=== PATIENT | female | born 1960 | race Asian ===

== ENCOUNTER → 2021-12-29 09:34 | Outpatient (CLI) | payer BC, OTHER, SELFPAY ==
--- NOTE | 2021-12-29 | PATH_ITS ---
Note [facility] Accession Number: [id number] TESTS RESULT FLAG UNITS REF RANGE LAB Clinician Provided Cytology Information No. of containers..01 Other (Miscellaneous) No. of containers..02 Previously Prepared Cytology Slide Source: RIGHT SUPERIOR NODUL DIAGNOSIS: RIGHT SUPERIOR THYROID NODULE, FINE NEEDLE ASPIRATION (FNA). NEGATIVE FOR MALIGNANT CELLS. ADEQUATE FOR EVALUATION. FOLLICULAR GROUPS ARE PRESENT. BENIGN FOLLICULAR (GOITEROUS) NODULE ([place] CATEGORY II), SEE COMMENT. COMMENT: MICROSCOPIC EXAMINATION REVEALS A CELLULAR ASPIRATE, COMPOSED OF COLLOID, FOLLICULAR GROUPS WITHOUT SIGNIFICANT CYTOLOGIC OR ARCHITECTURAL ATYPIA, AND BACKGROUND MACROPHAGES. THESE FINDINGS SUPPORT A BENIGN FOLLICULAR (GOITEROUS) NODULE. CORRELATION WITH CLINICAL AND RADIOGRAPHIC FINDINGS IS RECOMMENDED. ACCORDING TO THE [place] REPORTING SYSTEM FOR THYROID CYTOPATHOLOGY, THE RISK OF MALIGNANCY IN THE CATEGORY BENIGN-CATEGORY II IS 0-3%; THEREFORE RECOMMEND CONTINUED ULTRASOUND SURVEILLANCE WITH REPEAT FNA IF THE NODULE SIGNIFICANTLY INCREASES IN SIZE. Pathologist ICD10: 01 E04.2 Signed out by: Belkys Taylor MD, Pathologist NPI- [id number] Performed by: Belkys Anderson, Developmental Specialist ([facility]) Gross description: 01 30 CC, RED, CLOUDY RECIEVED: IN CYTOLYT WITH 6 ALCOHOL FIXED AND 6 QUICK STAINED SLIDES ALSO 1 RNA VIAL WAS RECEIVED FOR FURTHER TESTING. /WHITLEYU 12/30/2021 0455 [facility] FLAG LEGEND: L-Low Normal,H-High Normal,LL-Alert Low,HH-Alert High <-Panic Low,>-Panic High,A-Abnormal,AA-Critical Abnormal Performed at: 01 [facility] [address], [place] [address] Ander Bartholomew MD, Performed at: 01 [facility] [address] [place] [address] [address], [place], [place] [id number] MD Ander Bartholomew MD Phone: [phone]
--- NOTE | 2021-12-29 | PATH_ITS ---
Note [facility] Accession Number: [id number] TESTS RESULT FLAG UNITS REF RANGE LAB Clinician Provided Cytology Information No. of containers..01 Other (Miscellaneous) No. of containers..02 Previously Prepared Cytology Slide Source: RIGHT INFERIOR THYRO DIAGNOSIS: 01 RIGHT INFERIOR THYROID NODULE, FINE NEEDLE ASPIRATION (FNA). NEGATIVE FOR MALIGNANT CELLS. ADEQUATE FOR EVALUATION. FOLLICULAR GROUPS ARE PRESENT. BENIGN FOLLICULAR (GOITEROUS) NODULE (BETHESDA CATEGORY II), SEE COMMENT. COMMENT: MICROSCOPIC EXAMINATION REVEALS A CELLULAR ASPIRATE, COMPOSED OF ABUNDANT COLLOID, FOLLICULAR GROUPS WITHOUT SIGNIFICANT CYTOLOGIC OR ARCHITECTURAL ATYPIA AND BACKGROUND MACROPHAGES. THESE FINDINGS SUPPORT A BENIGN FOLLICULAR (GOITEROUS) NODULE. CORRELATION WITH CLINICAL AND RADIOGRAPHIC FINDINGS IS RECOMMENDED. ACCORDING TO THE [place] REPORTING SYSTEM FOR THYROID CYTOPATHOLOGY, THE RISK OF MALIGNANCY IN THE CATEGORY BENIGN-CATEGORY II IS 0-3%; THEREFORE RECOMMEND CONTINUED ULTRASOUND SURVEILLANCE WITH REPEAT FNA IF THE NODULE SIGNIFICANTLY INCREASES IN SIZE. Pathologist ICD10: 01 E04.2 Signed out by: Belkys Taylor MD, Pathologist NPI- [id number] Performed by: Belkys Anderson, Computer Aided Drafter ([facility]) Gross description: 01 30 CC, RED, CLOUDY RECIEVED: IN CYTOLYT WITH 6 ALCOHOL FIXED AND 6 QUICK STAINED SLIDES ALSO 1 RNA VIAL WAS RECEIVED FOR FURTHER TESTING. /VDU 12/30/2021 0454 [facility] FLAG LEGEND: L-Low Normal,H-High Normal,LL-Alert Low,HH-Alert High <-Panic Low,>-Panic High,A-Abnormal,AA-Critical Abnormal Performed at: 01 =[facility] [address] [place] [address] [address], [place] [address] Ander Bartholomew MD, Performed at: 01 [facility] Cytology [address] [place] [address] [address], [place], [place] [id number] MD Ander Bartholomew MD Phone: [phone]
--- NOTE | 2021-12-29 | DI.US.S_ITS ---
PROCEDURE: US FINE NEEDLE ASPIRATION INDICATIONS: MULTIPLE THYROID NODULE TECHNIQUE: The indications, alternatives, benefits, risks, and complications of the procedure were explained to the patient. Written informed consent was obtained and placed in the chart. The thyroid region was examined sonographically and a site was chosen for ultrasound guided percutaneous sampling. The skin was prepared and draped in the usual fashion, and anesthetized with 1% lidocaine infiltrated from the skin down to the thyroid gland. Multiple passes were then performed, with contents emptied into an appropriate pathology specimen container. A bandage was applied to the area of access at completion of the study. COMPARISON: [facility], , US SOFT TISSUE HEAD OR NECK, 09/30/2021, 15:05. FINDINGS: Location(s) of lesion(s) sampled: Nodule in the inferior right thyroid. Previously described nodule in the superior aspect of the right thyroid was not identified. There was a mildly enlarged 1.5 centimeter lymph node adjacent to the superior margin of the right thyroid which was aspirated. [place]: 25 gauge hypodermic needles. Number of passes: 5 Medications: 1% lidocaine for local anaesthesia. Complications: None. IMPRESSION: Successful ultrasound-guided thyroid nodule fine needle aspiration and right perithyroidal lymph node fine-needle aspiration, with cytology results pending. Please see chart below for management recommendations based on cytology results. [facility] ReportingRecommendationsNon-diagnostic* Repeat US-guided FNA, with on-site cytology evaluation if possible. * Repeated non-diagnostic nodules without high suspicion US features: close observation vs surgical consult. * Consider surgery if nodule has high suspicion US features, grows >20% in 2 dimensions on followup, or patient has clinical risk factors for malignancy. Benign* If nodule has high suspicion US features: repeat US and FNA within 12 months. * If nodule has low to intermediate suspicion US features: repeat US at 12-24 months. If nodule grows (20% increase in at least 2 dimensions, with minimal increase of 2 mm or >50% change in volume), or development of new suspicious US features, then repeat FNA or continue followup. * If nodule has very low suspicion US features: followup US at >24 months. Atypia of undetermined significance, follicular lesion of undetermined significanceRepeat FNA, molecular testing, followup US, or surgical consult.Follicular neoplasm, suspicious for follicular neoplasmSurgical consult; also consider molecular testing. Suspicious for malignancySurgical consult.MalignantSurgical consult. Dictated by: Courtney Bro MD, PhD on 12/29/2021 at 14:56 Approved by: Courtney Bro MD, PhD on 12/29/2021 at 14:58
== END ==
PROVIDERS: PCP Student in an Organized Health Care Education/Training Program; Referring Provider Otolaryngology; Visit Provider Otolaryngology
DX: E04.2 Nontoxic multinodular goiter (principal)
CPT/HCPCS: 10005

== ENCOUNTER 2023-12-13 12:57 | Day surgery (SDC) | payer BC, OTHER, SELFPAY ==
--- NOTE | 2023-12-13 | PATH_ITS ---
[facility] Accession Number: [id number] No. of containers..02 Tissue . 01 Material submitted: . PART A: duodenum - DUODENAL BIOPSY PART B: gastrointestinal site - GASTRIC BIOPSY . 01 Diagnosis: Part A: DUODENAL BIOPSY: Duodenal mucosa with no diagnostic alterations. No active inflammation and no evidence of celiac disease. . Part B: GASTRIC BIOPSY: Gastric mucosa with mild chronic inflammation. No Helicobacter organisms identified. No intestinal metaplasia, dysplasia, or malignancy identified. STO 12/16/2023 1733 Local . 01 Electronically signed: . Ander Bartholomew MD, Pathologist NPI- [id number] . 01 Gross description: . Part A: DUODENAL BIOPSY: Received in formalin are 2 fragment(s) of garces, soft tissue measuring 0.1 x 0.1 x 0.1 cm to 0.2 x 0.2 x 0.2 cm submitted entirely in 1 cassette(s) . Part B: GASTRIC BIOPSY: Received in formalin are 2 fragment(s) of garces, soft tissue measuring 0.2 x 0.2 x 0.2 cm to 0.3 x 0.3 x 0.2 cm submitted entirely in 1 cassette(s) /EMMANUEL 12/16/2023 1733 Local . 01 Microscopic: . An immunohistochemical stain was performed to evaluate for Helicobacter organisms and is negative. The control stains appropriately. * This test was developed and its performance characteristics determined by [employer]. It has not been cleared or approved by the U.S. Food and Drug Administration. The FDA has determined that such clearance or approval is not necessary. This test is used for clinical purposes. It should not be regarded as investigational or for research. . 01 Pathologist provided ICD-10: K29.50 . 01 CPT . 678911, 472829, A84705 Specimen Comment: A courtesy copy of this report has been sent to [phone] Performed at: 01 [facility] [address] [place] [address], [place], [place] [id number] MD Ander Bartholomew MD Phone: [phone]
[2023-12-13 14:14] VITALS: BP 126/67; PULSE 73; RESP 16; TEMP 36.5; O2SAT 100
--- NOTE | 2023-12-13 14:14 | PM.PREOP ---
Pre-operative Note Interval Note History & Physical reviewed/Exam performed by Physician: Yes Changes to H&P: No ASA Class (for procedural sedation): II
--- NOTE | 2023-12-13 14:15 | PM.OP.EC ---
Operative Date/Time/Diagnoses Date of procedure: 12/13/23 Pre-op diagnosis: See indication and findings Procedure & Clinicians Study performed: EGD and colonoscopy Indications: Nausea vomiting abdominal pain and need for screening colonoscopy Procedure Notes Procedure in detail: After informed consent was obtained the patient was placed in left lateral decubitus position. Video upper endoscope was placed in the oropharynx and with the patient's help swallowed into the esophagus. The esophagus stomach and duodenum were carefully examined. On withdrawal, retroflexed view the GE junction was performed. The scope was removed. The patient tolerated the procedure well. The patient was then turned and the colonoscope substituted. This was passed through the rectum up to the cecum. On slow withdrawal mucosa was carefully examined. The scope was removed. The patient tolerated procedure well. Blood loss none Complications none Sedation mac Findings EGD 1. Mid esophageal rings biopsies taken to rule out eosinophilic esophagitis 2. 3 cm hiatal hernia no Shabbir lesions noted LES somewhat wide open 3. Striped gastric erythema particularly in the antrum biopsies taken to rule out Helicobacter 4. Normal duodenal bulb and sweep biopsies taken to rule out celiac Colonoscopy 1.
[2023-12-13] MEDS: LACTATED RINGERS 1,000 ML 42 ML IV (14:23)
--- NOTE | 2023-12-13 14:58 | PM.HP.1 ---
History of Present Illness History of Present Illness Date Patient Seen: 12/13/23 Chief complaint: SDC Narrative: Abdominal pain GE reflux and need for colorectal cancer screening PFSH Social History Smoking Status: Never smoker alcohol intake: current Meds Home Medications and Allergies Home Medications Medication Instructions Recorded Confirmed Type albuterol sulfate 90 mcg/actuation 90 mcg inhalation PRN PRN Wheezing 04/30/23 12/13/23 History aerosol inhaler (ProAir HFA) ascorbic acid (vitamin C) PO 04/30/23 04/30/23 History baclofen 5 mg tablet 5 mg PO TID PRN muscle spasm #30 04/30/23 04/30/23 Rx tabs biotin [Hair, Skin and Nails PO 04/30/23 04/30/23 History (biotin)] ibuprofen 800 mg tablet 800 mg PO Q8H PRN pain #20 tabs 04/30/23 12/13/23 Rx lidocaine 5 % topical patch 1 patch topical DAILY 04/30/23 04/30/23 History pediatric multivitamin PO 04/30/23 04/30/23 History [multivitamin] xehluep-cdzk-cptzd-oreg-capryl PO 04/30/23 04/30/23 History zinc acetate PO 04/30/23 04/30/23 History atorvastatin 20 mg tablet 20 mg PO DAILY 12/13/23 12/13/23 History omeprazole 20 mg capsule,delayed 20 mg PO DAILY 12/13/23 12/13/23 History release Allergies Allergy/AdvReac Type Severity Reaction Status Date / Time sulfamethoxazole Allergy Mild Nausea Verified 12/13/23 14:02 [From ] trimethoprim [From ] Allergy Mild Nausea Verified 12/13/23 14:02 clindamycin Allergy Nausea Verified 12/13/23 14:02 codeine Allergy Nausea Verified 12/13/23 14:02 Exam Vital Signs (past 8 hours): - 12/13/23 14:14 Temperature 97.7 F Pulse Rate 73 Respiratory Rate 16 Blood Pressure 126/67 Pulse Oximetry 100 Oxygen Delivery Method Room Air Oxygen Delivery Method Room Air Narrative Exam Narrative: Oropharynx free of lesions Chest clear to auscultation percussion Cardiac exam reveals no S3 or murmur Assessment & Plan Assessment & Plan narrative: Abdominal discomfort and reflux plus need for colorectal cancer screening. Need for EGD and colonoscopy. Risks, benefits, alternatives have been explained.
--- NOTE | 2023-12-13 14:59 | PM.OP.EC ---
Operative Date/Time/Diagnoses Date of procedure: 12/13/23 Pre-op diagnosis: See indication and findings Procedure & Clinicians Study performed: EGD and colonoscopy Indications: Abdominal discomfort and need for colorectal cancer screening Procedure Notes Procedure in detail: After informed consent was obtained the patient was placed in left lateral decubitus position. The video upper scope was placed into the oropharynx with the patient's help swelled into the esophagus. The esophagus stomach and duodenum were carefully examined. On withdrawal retroflexed view the GE junction was performed. The scope was removed. The patient tolerated procedure well. The patient was then turned in the colonoscope substituted. This was easily passed through the rectum to cecum. On slow withdrawal mucosa was carefully examined. The scope was removed. The patient tolerated procedure well. Blood loss none Complications none Sedation mac Findings EGD 1. Normal esophagus 2. Patchy gastric erythema biopsies taken to rule out Helicobacter 3. Normal duodenal bulb and sweep biopsies taken to rule out celiac Colonoscopy 1. Normal colonoscopy to cecum Patient should have follow-up colonoscopy in 10 years. I will be in touch regarding the biopsies after which she can follow-up with ELADIA Walker in our office.
[2023-12-13 15:46] VITALS: BP 98/59; PULSE 67; RESP 14; O2SAT 96
[2023-12-13 15:51] VITALS: BP 98/58; PULSE 64; RESP 14; O2SAT 96
[2023-12-13 15:56] VITALS: BP 102/51; PULSE 63; RESP 19; O2SAT 96
[2023-12-13 16:01] VITALS: BP 107/55; PULSE 59; PULSE 64; RESP 12; RESP 15; O2SAT 97
[2023-12-13 16:10] VITALS: BP 109/55; PULSE 62; RESP 15; TEMP 36.6; O2SAT 97
== END 2023-12-13 16:24 | disposition home or self-care (01) ==
PROVIDERS: PCP Student in an Organized Health Care Education/Training Program; Referring Provider Internal Medicine Gastroenterology; Visit Provider Internal Medicine Gastroenterology
PROC: 0DJ08ZZ Inspection of Upper Intestinal Tract, Via Natural or Artificial Opening Endoscopic (ICD-10-PCS; CPT 43235; principal; 2023-12-13 14:00)
PROC: 0DJD8ZZ Inspection of Lower Intestinal Tract, Via Natural or Artificial Opening Endoscopic (ICD-10-PCS; CPT 45378; 2023-12-13 14:00)
DX: R10.9 Unspecified abdominal pain (principal); K21.9 Gastro-esophageal reflux disease without esophagitis; K29.50 Unspecified chronic gastritis without bleeding
CPT/HCPCS: 45378; 43239; J2704

== ENCOUNTER → 2025-05-01 07:09 | Outpatient (CLI) | payer BC, OTHER, SELFPAY ==
--- NOTE | 2025-05-01 07:11 | DI.US.S_ITS ---
PROCEDURE: US THYROID INDICATIONS: THYROID NODULES TECHNIQUE: Real-time scanning was performed of the thyroid gland, with image documentation. COMPARISON: [facility], US, US FINE NEEDLE ASPIRATION, 12/29/2021, 10:10. US, US SOFT TISSUE HEAD OR NECK, 09/30/2021, 15:05. [facility], RG, US SOFT TISSUE HEAD OR NECK, 09/30/2021, 15:05. FINDINGS: Thyroid: Right lobe measures 5.9 x 1.8 x 2.4 cm. Left lobe measures 4.7 x 1.4 x 1.4 cm. Isthmus is 0.7 cm thick. Echotexture is homogeneous. Nodule number: 1 Location: Right superior Size: 1.8 x 1.2 x 0.4 cm compared to 1.6 x 1.7 x 1.0 cm. Composition: Solid Echogenicity: Hypoechoic Shape: wider than tall. Margins: Smooth Echogenic foci: None Total points: For ACR TI-RADS category: 4 Nodule number: 2 Location: Right inferior Size: 2.8 x 2.3 x 2.2 cm compared to 2.6 x 2.2 x 1.7 cm. Composition: Solid Echogenicity: Hypoechoic Shape: wider than tall. Margins: Lobulated Echogenic foci: Macrocalcification Total points: 5 ACR TI-RADS category: 4 IMPRESSION: No significant interval progression above nodules, noted to have both been sampled in 2021. ACR TI-RADS definitions and recommendations: TI-RADS 1 (benign): 0 points. FNA not needed. TI-RADS 2 (not suspicious): 2 points. FNA not needed. TI-RADS 3: 3 points. * FNA if 2.5 cm or larger, follow up if 1.5 cm or larger (at 1, 3, and 5 years). TI-RADS 4: 4-6 points. * FNA if 1.5 cm or larger, follow up if 1 cm or larger (at 1, 2, 3, and 5 years). TI-RADS 5: 7 points or more. * FNA if 1 cm or larger, follow up if 0.5 cm or larger (every year for 5 years). Dictated by: Louise Guillen M.D. on 05/01/2025 at 16:41 Approved by: Louise Guillen M.D. on 05/01/2025 at 16:42
== END ==
LOC: US 07:10
PROVIDERS: PCP Student in an Organized Health Care Education/Training Program; Referring Provider Student in an Organized Health Care Education/Training Program; Visit Provider Otolaryngology
DX: E04.2 Nontoxic multinodular goiter (principal)
CPT/HCPCS: 76536